=== PATIENT | male | born 1995 | race African-American/Black ===

== ENCOUNTER 2022-12-28 22:49 | Emergency (ER) | payer MEDICAID ==
[~2022-12-28] VITALS: Ht 177.8 cm; Wt 65.8 kg
[2022-12-28 22:55] VITALS: BP 107/56; PULSE 68; RESP 16; TEMP 97.6; O2SAT 98
[2022-12-29 03:48] VITALS: BP 107/56; PULSE 68; RESP 16; TEMP 97.6; O2SAT 98
== END 2022-12-29 03:48 | disposition home or self-care (01) ==
LOC: MED 22:49
DX: Z00.8 Encounter for other general examination (principal); W57.XXXA Bitten or stung by nonvenomous insect and other nonvenomous arthropods, initial encounter; Y93.89 Activity, other specified; Y92.89 Other specified places as the place of occurrence of the external cause; Y99.8 Other external cause status
CPT/HCPCS: 99281

== ENCOUNTER 2023-07-04 05:35 | Emergency (ER) | payer SELFPAY ==
[~2023-07-04] VITALS: Ht 177.8 cm; Wt 65.8 kg
[2023-07-04 05:40] VITALS: BP 132/81; PULSE 91; RESP 18; TEMP 98.2; O2SAT 99
[2023-07-04] MEDS ORDERED: OMEP40EC24 PO (05:52)
[2023-07-04] MEDS ORDERED: DICYCLOMINE HCL LIQUID 10 MG/5 ML UDC ONE (05:52)
[2023-07-04] MEDS ORDERED: ALUMINUM HYD/MAG/SIMETHICONE 30 ML UDC ONE ×2 (05:52→05:55)
[2023-07-04] MEDS ORDERED: IBUP-2213 PO (05:52)
[2023-07-04] MEDS ORDERED: SIMETHICONE 40 MG/0.6 ML ONE (05:53)
[2023-07-04] MEDS: KETOROLAC 60 MG/2 ML VIAL IM ONE (06:08)
[2023-07-04] MEDS: DICYCLOMINE HCL LIQUID 20 MG, ALUMINUM HYD/MAG/SIMETHICONE 30 ML, LIDOCAINE VISCOUS 2% ... PO ONE (06:09)
[2023-07-04] MEDS: ONDANSETRON 4 MG ODT PO ONE (06:12)
[2023-07-04 06:46] VITALS: BP 130/80; PULSE 82; RESP 18; TEMP 98; O2SAT 98
== END 2023-07-04 06:46 | disposition home or self-care (01) ==
LOC: MED 05:35
DX: R10.13 Epigastric pain (principal); Z79.899 Other long term (current) drug therapy
CPT/HCPCS: 96372; 99283; J1885; Q0162

== ENCOUNTER 2023-07-24 14:23 | Emergency (ER) | payer SELFPAY ==
[~2023-07-24] VITALS: Ht 177.8 cm; Wt 63.5 kg
[~2023-07-24 14:23] MED LIST: IBUP-2213 PO; OMEP40EC24 PO
[2023-07-24 14:24] VITALS: BP 153/99; PULSE 60; RESP 19; TEMP 98.4; O2SAT 99
[2023-07-24] MEDS ORDERED: IBUP-2213 PO (15:06)
[2023-07-24] MEDS ORDERED: CLIN300C2 PO (15:06)
[2023-07-24] MEDS: IBUPROFEN 600 MG TAB PO ONE (15:16)
[2023-07-24] MEDS: ACETAMINOPHEN EXTRA STRENGTH 500 MG TAB PO ONE (15:18)
== END 2023-07-24 15:42 | disposition home or self-care (01) ==
LOC: MED 14:23
DX: K02.9 Dental caries, unspecified (principal); Z79.899 Other long term (current) drug therapy
CPT/HCPCS: 99283

== ENCOUNTER 2023-08-16 22:57 | Emergency (ER) | payer SELFPAY ==
[~2023-08-16] VITALS: Ht 172.7 cm; Wt 74.8 kg
[~2023-08-16 22:57] MED LIST changes: +CLIN300C2 PO
[2023-08-16 23:33] VITALS: BP 112/50; PULSE 75; RESP 14; TEMP 97.7; O2SAT 99
[2023-08-16 23:37] VITALS: BP 112/50; PULSE 75; RESP 14; TEMP 97.7
[2023-08-17] MEDS ORDERED: chlordiazePOXIDE 25 MG CAP ONE (01:23)
[2023-08-17] MEDS: chlordiazePOXIDE 25 MG CAP PO ONE (01:25)
[2023-08-17 01:38] VITALS: O2SAT 99
== END 2023-08-17 01:47 | disposition home or self-care (01) ==
LOC: MED 22:57
DX: F10.10 Alcohol abuse, uncomplicated (principal); R51.9 Headache, unspecified; Z88.0 Allergy status to penicillin; Z79.899 Other long term (current) drug therapy; Y90.9 Presence of alcohol in blood, level not specified
CPT/HCPCS: 99283

== ENCOUNTER 2023-09-13 19:48 | Emergency (ER) | payer MEDICAID ==
[~2023-09-13] VITALS: Ht 177.8 cm; Wt 74.8 kg
[2023-09-13 19:56] VITALS: BP 136/86; PULSE 103; RESP 20; TEMP 97.6; O2SAT 100
[2023-09-13 20:09] VITALS: BP 136/86; PULSE 103; RESP 20; TEMP 97.6; O2SAT 100
== END 2023-09-13 20:09 | disposition left against medical advice (07) ==
LOC: MED 19:48
DX: F10.129 Alcohol abuse with intoxication, unspecified (principal); Z53.21 Procedure and treatment not carried out due to patient leaving prior to being seen by health care provider

== ENCOUNTER 2023-10-23 10:27 | Emergency (ER) | payer MEDICAID ==
[~2023-10-23] VITALS: Ht 170.2 cm; Wt 68.0 kg
[2023-10-23 10:50] VITALS: BP 136/93; PULSE 57; RESP 16; TEMP 98.3; O2SAT 96
[2023-10-23] MEDS ORDERED: CLIN300C52 PO (11:10)
== END 2023-10-23 11:19 | disposition home or self-care (01) ==
LOC: MED 10:27
DX: K08.89 Other specified disorders of teeth and supporting structures (principal); R51.9 Headache, unspecified; R03.0 Elevated blood-pressure reading, without diagnosis of hypertension; Z79.1 Long term (current) use of non-steroidal anti-inflammatories (NSAID); Z79.2 Long term (current) use of antibiotics; Z79.899 Other long term (current) drug therapy; Z88.0 Allergy status to penicillin
CPT/HCPCS: 99283